=== PATIENT | male | born 1940 | race African-American/Black ===

== ENCOUNTER 2018-05-26 06:49 | Inpatient (IN) | payer MEDICARE, MEDICAID ==
[2018-05-26] VITALS (9 sets, daily range): BP systolic 104–135; BP diastolic 49–81
[~2018-05-26] VITALS: Ht 180.3 cm; Wt 75.3 kg
[2018-05-26] MEDS ORDERED: ASPI-1159 PO (07:33)
[2018-05-26] MEDS ORDERED: IODIXANOL 320MG/ML 100 ML BOTTLE IV ONE (07:34)
[2018-05-26] MEDS ORDERED: ASPIRIN/SOD BICARB/CITRIC ACID 324MG TAB EFF ONE (07:34)
[2018-05-26] MEDS ORDERED: LIDOCAINE HCL 1% 20ML VIAL (Pyxis) INJ ONE (07:34)
[2018-05-26] MEDS ORDERED: DIPHENHYDRAMINE 50MG/ML VIAL ONE (07:49)
[2018-05-26] MEDS ORDERED: FAMOTIDINE 20MG/2ML VIAL IV ONE (07:50)
[2018-05-26] MEDS ORDERED: HYDROCORTISONE SOD SUCCINATE 250 MG/2 ML VIAL ONE (07:52)
[2018-05-26 08:03] LABS: CHLORIDE 104 mEq/L (98-107)
[2018-05-26 08:05] LABS: PARTIAL THROMBOPLASTIN TIME 28.1 sec (23.4-31.0); PROTHROMBIN TIME 10.2 sec (9.1-11.1)
[2018-05-26] MEDS ORDERED: FENTANYL CITRATE/PF 50MCG/ML 2ML VIAL ONE (08:08)
[2018-05-26] MEDS ORDERED: MIDAZOLAM HCL 2 MG/2 ML VIAL ONE (08:08)
[2018-05-26] MEDS ORDERED: CHOL400D4 PO (08:10)
[2018-05-26] MEDS ORDERED: AMLO10TA80 PO (08:10)
[2018-05-26] MEDS ORDERED: BENA1TAB19 PO (08:10)
[2018-05-26] MEDS ORDERED: METF-416 PO (08:10)
[2018-05-26] MEDS ORDERED: ALBU18HF2 IH (08:10)
[2018-05-26] MEDS ORDERED: HYDR25TA PO (08:10)
[2018-05-26] MEDS ORDERED: GABA-529 PO (08:10)
[2018-05-26] MEDS ORDERED: MULT-1008 PO (08:10)
[2018-05-26] MEDS ORDERED: IOHEXOL-300 100 ML BOTTLE ONE (08:29)
[2018-05-26] MEDS ORDERED: ACETAMINOPHEN 325MG TABLET PO PRN (09:00)
[2018-05-26] MEDS ORDERED: ATROPINE SULFATE 1MG/10ML SYR IV PRN (09:00)
[2018-05-26] MEDS ORDERED: DEXTROSE 50% WATER 50ML SYRINGE IV PRN (09:00)
[2018-05-26] MEDS ORDERED: ONDANSETRON HCL 4MG/2ML INJ IV PRN (09:00)
[2018-05-26] MEDS ORDERED: MORPHINE SULFATE 4 MG/ML CPJ (NOT FOR IM USE) IV PRN (09:00)
[2018-05-26] MEDS ORDERED: CLOPIDOGREL 75MG TABLET PO ONE (09:00)
[2018-05-26] MEDS ORDERED: CLOPIDOGREL 75MG TABLET ONE (09:07)
[2018-05-26] MEDS ORDERED: GLYB5TAB7 MT (09:34)
[2018-05-26] MEDS ORDERED: UMEC1DIS IH (09:34)
[2018-05-26] MEDS: BLOOD SUGAR DIAGNOSTIC STRIP TEST SCH ×3 (11:02→20:54)
[2018-05-26] MEDS: AMLODIPINE 5MG TABLET PO SCH ×2 (11:06→20:53)
[2018-05-26] MEDS: SODIUM CHLORIDE 0.45% 1,000 ML IV SCH ×2 (11:45→17:00)
[2018-05-26] MEDS: INSULIN LISPRO 100 UNITS/ML SUBCUT SCH ×3 (13:03→20:54)
[2018-05-26] MEDS ORDERED: NICARDIPINE 100MCG/ML 10ML VIAL (CATH LAB) IV ONE (13:56)
[2018-05-26] MEDS ORDERED: HEPARIN SODIUM 1,000 UNIT/1ML VIAL IV ONE (13:56)
[2018-05-26] MEDS ORDERED: NITROGLYCERIN 50MCG/ML 10ML VIAL (CATH LAB) IV ONE (13:56)
[2018-05-26] MEDS: BENAZEPRIL 10MG TABLET PO SCH (20:53)
[2018-05-27] VITALS (10 sets, daily range): BP systolic 109–145; BP diastolic 46–71
[2018-05-27] MEDS: SODIUM CHLORIDE 0.45% 1,000 ML IV SCH ×2 (01:37→06:26)
[2018-05-27] MEDS: BLOOD SUGAR DIAGNOSTIC STRIP TEST SCH (06:26)
[2018-05-27 07:24] LABS: HEMOGLOBIN. 11.8 g/dL (14.0-18.0); MEAN CORPUSCULAR HEMOGLOBIN 33.6 pg (28.0-32.0); MEAN CORPUSCULAR VOLUME 99.8 fL (80.0-94.0); MEAN PLATELET VOLUME 8.1 fl (7.4-10.4); PLATELET 171 x1000/uL (130-400); RED BLOOD CELL COUNT 3.51 mill/uL (4.7-6.1); RED CELL DISTRIBUTION WIDTH 13.1 % (11.6-14.6)
[2018-05-27 07:25] LABS: CHLORIDE 109 mEq/L (98-107)
[2018-05-27] MEDS: BENAZEPRIL 10MG TABLET PO SCH (08:40)
[2018-05-27] MEDS: AMLODIPINE 5MG TABLET PO SCH (08:40)
[2018-05-27] MEDS: INSULIN LISPRO 100 UNITS/ML SUBCUT SCH (08:46)
[2018-05-27] MEDS ORDERED: ASPIRIN 325MG TABLET PO SCH (09:00)
[2018-05-27] MEDS ORDERED: CLOPIDOGREL 75MG TABLET PO SCH (09:00)
[2018-05-27] MEDS ORDERED: POTASSIUM CHLORIDE 20MEQ TABLET SR PO NR (10:00)
[2018-05-27] MEDS ORDERED: POTASSIUM CHLORIDE 20MEQ TABLET SR PO ONE (10:00)
[2018-05-27 13:53] LABS: PLATELET ESTIMATE NORMAL
== END 2018-05-27 11:55 | disposition home or self-care (01) | DRG 247 ==
LOC: CCL 06:49 → 3WST 06:50
PROVIDERS: ADMIT Specialist; ATTEND Specialist
PROC: 4A023N7 Measurement of Cardiac Sampling and Pressure, Left Heart, Percutaneous Approach (ICD-10-PCS; principal; 2018-05-26)
PROC: 027035Z Dilation of Coronary Artery, One Artery with Two Drug-eluting Intraluminal Devices, Percutaneous Approach (ICD-10-PCS; 2018-05-26)
PROC: B2111ZZ Fluoroscopy of Multiple Coronary Arteries using Low Osmolar Contrast (ICD-10-PCS; 2018-05-26)
PROC: B2151ZZ Fluoroscopy of Left Heart using Low Osmolar Contrast (ICD-10-PCS; 2018-05-26)
DX: I25.10 Atherosclerotic heart disease of native coronary artery without angina pectoris (principal); E11.42 Type 2 diabetes mellitus with diabetic polyneuropathy; E78.00 Pure hypercholesterolemia, unspecified; E87.6 Hypokalemia; I10 Essential (primary) hypertension; Z87.891 Personal history of nicotine dependence; Z88.0 Allergy status to penicillin; Z91.013 Allergy to seafood; Z79.82 Long term (current) use of aspirin; Z79.84 Long term (current) use of oral hypoglycemic drugs; Z79.899 Other long term (current) drug therapy
CPT/HCPCS: 36415; 80048; 82962; 85347; 92928; 93005; 93458; C1769; C1874; C1887; C1893; J1200; J1644; J1720; J1815; J2250; J3010; J3490; Q9967

== ENCOUNTER → 2022-08-28 | Day surgery (SDC) | payer MEDICARE, MEDICAID ==
[~2022-08-28] VITALS: Ht 180.3 cm; Wt 74.8 kg
[~2022-08-28] MED LIST: AMLO10TA80 PO; ASPI-1497 PO; BENA40TA66 PO; BIOT10005 PO; BUPIVACAINE HCL/PF 0.5% (5MG/ML) 10ML ONE; CHOL400D4 PO; CLINDAMYCIN IN 0.9 % SOD CHLOR 50 ML IV ONE; CYAN100T43 PO; CYAN250010 PO; DAPA10TA PO; FENTANYL CITRATE/PF 50MCG/ML 2ML VIAL IV PRN; FENTANYL CITRATE/PF 50MCG/ML 2ML VIAL ONE; FLUT1BLS3 IH; GABA-529 PO; GLIM1TAB PO; KRIL1CAP22 PO; LATA2.5D14 BOTHEYE; LIDOCAINE HCL 1% 10 MG/ML 10ML VIAL ONE; METF-416 PO; MULT-1008 PO; PROPOFOL 200MG/20ML VIAL IV ONE; ROCURONIUM BROMIDE 10MG/ML VIAL 5ML IV ONE; SITA1TBM7 PO; SKIN ADHESIVE 0.7 GM EA TOP ONE; SODIUM CHLORIDE 0.9% 1,000 ML IV SCH; TIMO5DRO17 BOTHEYE; VIAG25 PO; VITA-358 PO
== END | disposition home or self-care (01) ==
LOC: OR 09:47
PROVIDERS: ATTEND Surgery
DX: K40.90 Unilateral inguinal hernia, without obstruction or gangrene, not specified as recurrent (principal); I25.10 Atherosclerotic heart disease of native coronary artery without angina pectoris; I10 Essential (primary) hypertension; E78.00 Pure hypercholesterolemia, unspecified; E11.9 Type 2 diabetes mellitus without complications; J44.9 Chronic obstructive pulmonary disease, unspecified; Z79.84 Long term (current) use of oral hypoglycemic drugs; Z79.899 Other long term (current) drug therapy; Z98.890 Other specified postprocedural states; Z20.822 Contact with and (suspected) exposure to COVID-19
CPT/HCPCS: 49505; 82962; 87426; A4217; C1781; C9803; J2704; J3010; J3490; Z7610